=== PATIENT | female | born 1945 | race Caucasian/White ===

== ENCOUNTER 2020-05-17 09:02 | Day surgery (SDC) | payer MEDICARE ==
[~2020-05-17] VITALS: Ht 167.6 cm; Wt 86.6 kg
[~2020-05-17 09:02] MED LIST: GLIP5 PO; LEVOTHYROXINE88 MC1 PO; METF500C PO; Prednisone10 MG PO
[2020-05-17] MEDS ORDERED: ONDA8 PO (09:55)
[2020-05-17] MEDS ORDERED: MAGNESIUM OXID500 MG PO (09:57)
--- NOTE | 2020-05-17 10:25 | NUR ---
Ambulatory in Day Surgery History, Chart, Medications and Allergies reviewed before start of procedure.Lungs clear T/O to Auscultation. Patient confirms NPO status and agrees with scheduled surgery. Pre-Op teaching done. Pt verbalizes understanding.
--- NOTE | 2020-05-17 12:25 | NUR ---
05/17/20 1225 Rosie Ramírez PT NOTED TO BE RED IN COLOR ALL OVER BODY PRIOR TO ENTERING OR 2. PT STATED SHE HAD SLOUCORTEF 100 MG AT 1104 THIS AM AND IT IS RELATED TO THAT. AWARE.
--- NOTE | 2020-05-17 13:40 | NUR ---
Dressing to procedure site clean, dry, intact with no visible drainage, swelling, erythema or bruising noted. PT ALERT AND ORIENTED. TOLERATING PO FLUIDS
--- NOTE | 2020-05-17 13:55 | NUR ---
Discharge instructions reviewed with patient. Patient verbalizes understanding. Copy given to patient to take home. Patient States Post-Procedure ride home has been arranged. Dressing to procedure site clean, dry, intact with no visible drainage, swelling, erythema or bruising noted. Provided pt with ice pack.
--- NOTE | 2020-05-17 14:14 | NUR ---
Discharged via wheelchair to private car for ride home.
== END 2020-05-17 14:15 | disposition home or self-care (01) ==
LOC: ORSCMMR 09:02 → ORD 10:30 → ORSCMMR 10:30
PROVIDERS: Surgery
PROC: 05HM33Z Insertion of Infusion Device into Right Internal Jugular Vein, Percutaneous Approach (ICD-10-PCS; principal; 2020-05-17 10:30)
PROC: B543ZZA Ultrasonography of Right Jugular Veins, Guidance (ICD-10-PCS; principal; 2020-05-17 10:30)
DX: C25.8 Malignant neoplasm of overlapping sites of pancreas (principal); E03.9 Hypothyroidism, unspecified; E11.9 Type 2 diabetes mellitus without complications; Z79.84 Long term (current) use of oral hypoglycemic drugs; G40.909 Epilepsy, unspecified, not intractable, without status epilepticus; Z79.899 Other long term (current) drug therapy
CPT/HCPCS: 77001; 82947; C1788; J0690; J1642; J1720; J2405; J3010; J7120

== ENCOUNTER 2020-07-13 11:23 | Inpatient (IN) | payer MEDICARE, OTHER ==
[~2020-07-13] VITALS: Ht 167.6 cm; Wt 77.1 kg
[~2020-07-13 11:23] MED LIST changes: +MAGNESIUM OXID500 MG PO; +ONDA8 PO
[2020-07-13 13:16] LABS: Hematocrit 30.7 % (33.0-51.0); Hemoglobin 10.3 g/dL (11.5-16.0); Mean Corpuscular HGB 33.3 pg (26.0-34.0); Mean Corpuscular HGB Conc 33.6 g/dL (31.5-36.5); Mean Corpuscular Volume 99 fL (80-100); Mean Platelet Volume 9.9 fL (9.1-12.4); Platelet Count 199 K/mm3 (150-400); RDW Coefficient Variation 19.1 % (11.7-14.2); RDW Standard Deviation 67.8 fL (35.1-46.3); Red Blood Cell Count 3.09 M/mm3 (3.80-5.20); White Blood Cell Count 8.81 K/mm3 (4.00-11.30)
[2020-07-13 13:40] LABS: Albumin, Blood 2.8 g/dL (3.4-5.0); Albumin/Globulin Ratio 0.9 (0.8-1.8); Bilirubin, Total 0.5 mg/dL (0.1-1.0); Bun/Creatinine Ratio 10.5 (12.0-20.0); Calcium, Blood 8.2 mg/dL (8.5-10.1); Creatinine, Blood 1.14 mg/dL (0.40-1.00); Potassium, Blood 3.6 mmol/L (3.5-5.5); Total Protein, Blood 5.8 g/dL (6.4-8.2)
[2020-07-13 13:48] LABS: BAND PERCENT MAN 21 % (0-8); BASOPHILS PERCENT MAN 0 % (0-2); EOSINOPHILS ABSOLUTE MAN 0.08 K/mm3 (0.00-0.68); EOSINOPHILS PERCENT MAN 1 % (0-6); LYMPHOCYTES ABSOLUTE MAN 1.76 K/mm3 (0.84-5.20); LYMPHOCYTES PERCENT MAN 20 % (21-46); METAMYELOCYTE ABSOLUTE MAN 0.08 K/mm3 (0.00-0.00); METAMYELOCYTE PERCENT MAN 1 % (0-0); MONOCYTES ABSOLUTE MAN 0.44 K/mm3 (0.16-1.47); MONOCYTES PERCENT MAN 5 % (4-13); NEUTROPHILS ABSOLUTE MAN 6.43 K/mm3 (1.96-9.15); SEG NEUTROPHILS PERCENT MAN 52 % (41-73); TOTAL CELLS COUNTED 100
[2020-07-13] MEDS ORDERED: INSULIN AS100 UNIT/8 SC (15:41)
[2020-07-13] MEDS ORDERED: TRESIBA FL100 UNIT/2 SC (17:23)
[2020-07-13] MEDS ORDERED: [UNRECOGNIZED DRUG - OTHER] (17:24)
[2020-07-13] MEDS ORDERED: DIPHENHYDRAMINE PO (17:26)
[2020-07-13] MEDS ORDERED: ACETAMINOPHEN PO (17:26)
[2020-07-13] MEDS ORDERED: IMODIUM A-D2 M1 PO (21:41)
[2020-07-13] MEDS ORDERED: EMU OIL TOP (21:41)
[2020-07-13 23:56] LABS: Source, Urine Clean Catch
[2020-07-14 00:05] LABS: Appearance, Urine Clear (Clear); Bilirubin, Urine Neg (Neg); Blood, Urine 4+ (Neg); Color, Urine Amber (P-Yellow); Glucose Qualitative, Urine 1+ (Neg); Ketones, Urine Neg (Neg); Leukocyte Esterase, Urine 2+ (Neg); Nitrite, Urine Neg (Neg); Protein, Urine 2+ (Neg); Specific Gravity, Urine 1.015 (1.003-1.022); Urobilinogen, Urine NORM (Normal)
[2020-07-14 00:10] LABS: Bacteria Many /hpf; Hyaline Casts 0-2 /lpf (0-2); Mucus Light (0-Heavy); Squamous Epithelial Cells Few /hpf (Few); White Blood Cells, Urine 25-50 /hpf (0-5)
[2020-07-14 04:59] LABS: Hematocrit 28.1 % (33.0-51.0); Hemoglobin 9.2 g/dL (11.5-16.0); Mean Corpuscular HGB 32.2 pg (26.0-34.0); Mean Corpuscular HGB Conc 32.7 g/dL (31.5-36.5); Mean Corpuscular Volume 98 fL (80-100); Mean Platelet Volume 9.8 fL (9.1-12.4); Platelet Count 187 K/mm3 (150-400); RDW Coefficient Variation 18.6 % (11.7-14.2); RDW Standard Deviation 66.3 fL (35.1-46.3); Red Blood Cell Count 2.86 M/mm3 (3.80-5.20); White Blood Cell Count 8.54 K/mm3 (4.00-11.30)
[2020-07-14 05:19] LABS: Anion Gap 3 mmol/L (6-16); Blood Urea Nitrogen 14 mg/dL (8-24); Bun/Creatinine Ratio 15.1 (12.0-20.0); CO2, Blood 29 mmol/L (21-32); Calcium, Blood 7.9 mg/dL (8.5-10.1); Chloride, Blood 105 mmol/L (98-108); Creatinine, Blood 0.93 mg/dL (0.40-1.00); Glomerular Filtration Rate >60 (60-); Glucose, Blood 58 mg/dL (70-99); Magnesium, Blood 1.4 mg/dL (1.6-2.4); Phosphorus, Blood 2.9 mg/dL (2.5-4.9); Potassium, Blood 3.5 mmol/L (3.5-5.5); Sodium, Blood 137 mmol/L (136-145)
[2020-07-14 05:40] LABS: BAND PERCENT MAN 6 % (0-8); BASOPHILS PERCENT MAN 0 % (0-2); EOSINOPHILS PERCENT MAN 0 % (0-6); LYMPHOCYTES ABSOLUTE MAN 1.45 K/mm3 (0.84-5.20); LYMPHOCYTES PERCENT MAN 17 % (21-46); MONOCYTES ABSOLUTE MAN 0.93 K/mm3 (0.16-1.47); MONOCYTES PERCENT MAN 11 % (4-13); MYELOCYTE ABSOLUTE MAN 0.17 K/mm3 (0.00-0.00); MYELOCYTE PERCENT MAN 2 % (0-0); NEUTROPHILS ABSOLUTE MAN 5.97 K/mm3 (1.96-9.15); SEG NEUTROPHILS PERCENT MAN 64 % (41-73); TOTAL CELLS COUNTED 100
--- NOTE | 2020-07-14 05:53 | NUR ---
SHIFT SUMMARY NEW ED ADMIT THIS EVENING. PT IS VERY PARTICULAR ABOUT EVERYTHING. HAS MANY ALLERGIES TO FOODS. PT ALSO REPORTS THAT SHE CANNOT EAT OR DRINK ANYTHING THAT IS COLD. CBG 62 AT HS AND 58 WITH LABS THIS AM. THE ONLY THING THAT PT WAS ABLE TO EAT OUT OF THE PANTRY TO BRING UP BLOOD SUGAR WAS FRUIT CUPS. WARMED UP FRUIT CUPS AND PT TOLERATED WELL. 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 MAKING PT'S SKIN RED AND ITCHY. EUCERIN CREAM ORDERED BUT PT WOULD NOT USE IT SHE WAS CONCERNED THERE MAY BE SOMETHING THAT SHE IS ALLERGIC TO IN IT. METAPORT TO R CHEST WALL. NOT ACCESSED. PT DID NOT SLEEP WELL THIS EVENING. GAS PAINS REPORTED, BM THIS AM WITH IMPROVEMENT. VERY LOW GRADE TEMP AT 99.7 AND 99.5. TYLENOL GIVEN THIS AM. VITAL SIGNS STABLE. WILL CONTINUE TO MONITOR.
--- NOTE | 2020-07-14 10:07 | NUR ---
VERBAL ORDERS FROM DR. SCHMITT TYLENOL PM 2 TABS AT NIGHT PER HOME DOSE, OK TO HAVE SKIN LOTION FROM HOME, DC LEVAQUIN AND REPLACE WITH VANCO BY HAVING PHARMACY CONSULTED AND MANAGE BACTEREMIA. ORDERS UPDATED.
--- NOTE | 2020-07-14 15:43 | NUR ---
Shift Summary A/Ox4, pleasant and cooperative. and daughter visited today. Calls appropriately for needs. SBA to bathroom. Appetite is poor d/t patient's dietary restrictions (patient reports allergy and chemo drug interaction with the following: lactose, diary, eggs, cold drinks, gluten). Patient also reports dislike for soy and almond milk. Blood sugars have been low, lantus held per parameter. Patient has been snacking q2h with rice cakes and gluten free bread/butter. Home lotion brought in by (Ragini) for itchiness and dry skin. Denies pain, nausea, vomiting. Also reports diminished taste d/t chemotherapy. Tele: 81. WCTM.
[2020-07-15 05:12] LABS: Hematocrit 29.5 % (33.0-51.0); Hemoglobin 9.9 g/dL (11.5-16.0); Mean Corpuscular HGB 32.7 pg (26.0-34.0); Mean Corpuscular HGB Conc 33.6 g/dL (31.5-36.5); Mean Corpuscular Volume 97 fL (80-100); Mean Platelet Volume 10.2 fL (9.1-12.4); Platelet Count 225 K/mm3 (150-400); RDW Coefficient Variation 18.6 % (11.7-14.2); RDW Standard Deviation 65.5 fL (35.1-46.3); Red Blood Cell Count 3.03 M/mm3 (3.80-5.20); White Blood Cell Count 12.64 K/mm3 (4.00-11.30)
[2020-07-15 05:38] LABS: Albumin, Blood 2.2 g/dL (3.4-5.0); Anion Gap 8 mmol/L (6-16); Blood Urea Nitrogen 9 mg/dL (8-24); Bun/Creatinine Ratio 9.3 (12.0-20.0); CO2, Blood 25 mmol/L (21-32); Calcium, Blood 8.3 mg/dL (8.5-10.1); Chloride, Blood 102 mmol/L (98-108); Creatinine, Blood 0.97 mg/dL (0.40-1.00); Glomerular Filtration Rate 60 (60-); Glucose, Blood 93 mg/dL (70-99); Magnesium, Blood 1.8 mg/dL (1.6-2.4); Potassium, Blood 3.5 mmol/L (3.5-5.5); Sodium, Blood 135 mmol/L (136-145)
--- NOTE | 2020-07-15 05:53 | NUR ---
SHIFT SUMMARY PT HAD A MUCH BETTER EVENING. SLEPT WELL MOST OF THE NIGHT. PT REFUSED PROBIOTIC AT HS CONCERNED THAT IT MAY BE THE CAUSE OF PT'S GAS AND PT DENIED HAVING ANY GAS THROUGHOUT THE NIGHT. SKIN CONTINUES TO BE RED, FLAKY, AND DRY WHICH IS PT'S BASELINE. PT APPLIES LOTION AND "EMU OIL" INDEPENDENTLY NEEDED. ITCHING IMPROVED WITH PT'S HOME REGIMEN. TELEMETRY SR 83. PT 99.4 AT HS VITALS CHECK, 98.3 THIS AM WITHOUT MEDICATION. HIGHER TEMPERATURE MAY BE RELATED TO FREQUENTLY REQUESTED BLANKETS FROM THE WARMER. METAPORT TO R CHEST WALL REMAINS UNACCESSED. PT RESTING IN BED AT THIS TIME. VITAL SIGNS STABLE. WILL CONTINUE TO MONITOR.
--- NOTE | 2020-07-15 11:30 | NUR ---
Echocardiogram completed.
--- NOTE | 2020-07-15 16:29 | NUR ---
SHIFT SUMMARY PT AxOx4. PLEASANT AND COOPERATIVE WITH CARE. NOTABLE RED, SCALY SKIN T/O. PER PATIENT, THIS IS NORMAL FOR HER D/T SEZARY DISEASE. PT HAD ECHOCARDIOGRAM TODAY. IN FOR VISIT, UPDATED ON PLAN OF CARE. PER DR SCHMITT, PT WILL STAY LONGER TO GET IV ABX TO TREAT POSITIVE BLOOD CULTURES. VITALS REVIEWED. TELE RUNNING SR @70. PT SBA TO BR. PT REPORTS FEELING STRONGER TODAY. DENIES PAIN. CURRENTLY RESTING IN BED WITH CALL LIGHT IN REACH. DENIES ANY NEEDS AT THIS TIME.
--- NOTE | 2020-07-16 04:29 | NUR ---
SHIFT SUMMARY PT CONTINUES TO FEEL IMPROVED. SLEPT WELL AGAIN THIS EVENING. NO COMPLAINTS OF PAIN OR DISCOMFORT. USED SELF LOTIONS AND OILS FOR RED FLAKY SKIN. SKIN IS BASELINE FOR PT WITH SEZARY SYNDROME. SECOND SET OF BLOOD CULTURES CAME BACK GRAM POSITIVE COCCI IN CLUSTERS. METAPORT R CHEST WALL. NOT ACCESSED. BLOOD SUGARS STABLE. NO ACUTE EVENTS THIS EVENING. VITAL SIGNS STABLE. AFEBRILE. WILL CONTINUE TO MONITOR.
[2020-07-16 05:45] LABS: Hematocrit 26.8 % (33.0-51.0); Mean Corpuscular HGB 32.4 pg (26.0-34.0); Mean Corpuscular HGB Conc 33.6 g/dL (31.5-36.5); Mean Corpuscular Volume 96 fL (80-100); Mean Platelet Volume 10.1 fL (9.1-12.4); NRBC ABSOLUTE 0.02 K/mm3 (0.00-0.02); NRBC Auto 0.1 /100 WBC (0.0-0.2); Platelet Count 239 K/mm3 (150-400); RDW Coefficient Variation 18.5 % (11.7-14.2); RDW Standard Deviation 64.5 fL (35.1-46.3); Red Blood Cell Count 2.78 M/mm3 (3.80-5.20); White Blood Cell Count 16.59 K/mm3 (4.00-11.30)
[2020-07-16 06:01] LABS: Anion Gap 7 mmol/L (6-16); Blood Urea Nitrogen 9 mg/dL (8-24); Bun/Creatinine Ratio 9.6 (12.0-20.0); CO2, Blood 26 mmol/L (21-32); Calcium, Blood 8.1 mg/dL (8.5-10.1); Chloride, Blood 104 mmol/L (98-108); Creatinine, Blood 0.94 mg/dL (0.40-1.00); Glomerular Filtration Rate >60 (60-); Glucose, Blood 117 mg/dL (70-99); Phosphorus, Blood 2.7 mg/dL (2.5-4.9); Potassium, Blood 3.2 mmol/L (3.5-5.5); Sodium, Blood 137 mmol/L (136-145)
[2020-07-16 10:59] LABS: Vancomycin, Trough 12.8 ug/mL (5.0-10.0)
--- NOTE | 2020-07-16 17:09 | NUR ---
SHIFT SUMMARY PT AxOx4. COOPERATIVE WITH CARE. PT HAD SHOWER TODAY. DENIES PAIN. DR BERRY, INFECTIOUS DISEASE DR CONSULTED TODAY. MEDIPORT ACCESS ORDERS GIVEN FOR BLOOD CULTURES AND IV ABX ADMINISTRATION. PT'S IN TODAY, AND UPDATED ON PLAN OF CARE. GISSEL GREENFIELD, GYMNASTICS INSTRUCTOR CONSULTED REGARDING DC PLANS. TENTATIVE PLAN IS FOR PT TO HAVE CARE HOME OUTPATIENT IV ABX. PLAN IS STILL DEVELOPING PT LIVES ON THE [facility]. NEUTROPENIC PRECAUTIONS DC'D TODAY. PT/OT WORKING WITH PATIENT. INDEPENDENT IN THE ROOM. VITALS REVIEWED. PT CURRENTLY RESTING IN BED WITH CALL LIGHT IN REACH.
--- NOTE | 2020-07-16 20:00 | NUR ---
CONSULT: SPOKE WITH DOCTOR BERRY TO CLARIFY TODAYS ORDERS TO ACCESS PORT. AREA IS VERY SWOLLEN AND CONCRETE INSPECTOR IS UNABLE TO IDENTIFY LAND ADALID TO ACCESS PORT. TROY BERRY IS OK WITH A NURSE FROM ICU ACCESSING PORT TO TRY TO OBTAIN ACCESS AND DRAW CULTURES AND ADMIN ABX. IF ACCESS IS NOT OBTAINED HOLD CEFZOLIN AND ADMIN ROCHEPHINE VIA PERIFFERRAL IV SITE.
--- NOTE | 2020-07-17 06:41 | NUR ---
SHIFT SUMMARY: MEDIPORT WAS NOT ACCESSED DUE TO SWELLING. VSS, NO REPORTS OF PAIN OR DISCOMFORT. LAB HAS CANCELED BLOOD CULTURES FROM PORT DUE TO NO ACCESS. SYNTHROID HAS BEEN DC'D, PATIENT WAS ASKING FOR MEDICATION. DC ORDER WAS PLACE BY DR BERRY. PATIENT IS CONCERNED ABOUT NOT HAVING THIS MEDICATION. SWELLING TO RCW PEDIPORT HAS NOT INCREADED THEOUGH THE SHIFT.
[2020-07-17 09:04] LABS: Hematocrit 31.3 % (33.0-51.0); Hemoglobin 10.3 g/dL (11.5-16.0); Mean Corpuscular HGB Conc 32.9 g/dL (31.5-36.5); Mean Corpuscular Volume 97 fL (80-100); Mean Platelet Volume 9.8 fL (9.1-12.4); NRBC ABSOLUTE 0.07 K/mm3 (0.00-0.02); NRBC Auto 0.3 /100 WBC (0.0-0.2); Platelet Count 301 K/mm3 (150-400); RDW Coefficient Variation 18.7 % (11.7-14.2); RDW Standard Deviation 65.7 fL (35.1-46.3); Red Blood Cell Count 3.22 M/mm3 (3.80-5.20); White Blood Cell Count 22.49 K/mm3 (4.00-11.30)
[2020-07-17 09:29] LABS: BAND PERCENT MAN 9 % (0-8); BASOPHILS PERCENT MAN 0 % (0-2); EOSINOPHILS PERCENT MAN 0 % (0-6); LYMPHOCYTES ABSOLUTE MAN 4.49 K/mm3 (0.84-5.20); LYMPHOCYTES PERCENT MAN 20 % (21-46); METAMYELOCYTE ABSOLUTE MAN 0.22 K/mm3 (0.00-0.00); METAMYELOCYTE PERCENT MAN 1 % (0-0); MONOCYTES ABSOLUTE MAN 0.44 K/mm3 (0.16-1.47); MONOCYTES PERCENT MAN 2 % (4-13); MYELOCYTE ABSOLUTE MAN 0.67 K/mm3 (0.00-0.00); MYELOCYTE PERCENT MAN 3 % (0-0); NEUTROPHILS ABSOLUTE MAN 16.64 K/mm3 (1.96-9.15); SEG NEUTROPHILS PERCENT MAN 65 % (41-73); TOTAL CELLS COUNTED 100
[2020-07-17 09:38] LABS: Anion Gap 5 mmol/L (6-16); Blood Urea Nitrogen 10 mg/dL (8-24); Bun/Creatinine Ratio 10.6 (12.0-20.0); CO2, Blood 29 mmol/L (21-32); Calcium, Blood 8.7 mg/dL (8.5-10.1); Chloride, Blood 103 mmol/L (98-108); Creatinine, Blood 0.94 mg/dL (0.40-1.00); Glomerular Filtration Rate >60 (60-); Glucose, Blood 82 mg/dL (70-99); Potassium, Blood 2.9 mmol/L (3.5-5.5); Sodium, Blood 137 mmol/L (136-145)
--- NOTE | 2020-07-17 13:08 | NUR ---
ULRASOUND RESULTS CALLED TO DR. PAWAN VILLALTA'S OFFICE WAS CALLED & ULTRASOUND RESULTS WERE RELAYED TO REYES PARHAM. RESULTS WERE A 4.3 CM COMPLEX FLUID COLLECTION ON R UPPER CHEST WALL. GUILHERME STATED SHE WILL RELAY MESSAGE TO DR. VILLALTA.
--- NOTE | 2020-07-17 16:33 | NUR ---
SHIFT SUMMARY CONSLUTED FOR PT THIS AM. AFTER INITIAL EVAL, ULTRASOUND WAS ORDERED FOR THE R CHEST WALL. WELLNESS RN REPORTED A 4.3CM COMPLEX FLUID COLLECTION. THIS WAS RELAYED TO DR. VILLALTA AND THE MEDIPORT WAS REMOVED AT BEDSIDE BY DR. VILLALTA AND DR. SANCHEZ. CULTURES SENT TO LAB. DRESSING CLEAN & INTACT AT THIS TIME. PT REMAINS IND IN ROOM. FOAM PREVENTATIVE MEPILEX PLACED TO R HEEL. PT STATES IT HAS BEEN TENDER SINCE BEFORE HER ADMISSION. PT MEDICATED WITH TYLENOL ONCE THIS SHIFT AFTER THE REMOVAL OF HER MEDIPORT. NEW IV PLACED BY PHLEBOTOMIST. PT RESTING IN BED. FAMILY AT BEDSIDE. CALL LIGHT IN REACH. VS REVIEWED.
[2020-07-18 06:07] LABS: Hematocrit 27.6 % (33.0-51.0); Hemoglobin 9.2 g/dL (11.5-16.0); Mean Corpuscular HGB 32.5 pg (26.0-34.0); Mean Corpuscular HGB Conc 33.3 g/dL (31.5-36.5); Mean Corpuscular Volume 98 fL (80-100); Mean Platelet Volume 10.5 fL (9.1-12.4); NRBC ABSOLUTE 0.05 K/mm3 (0.00-0.02); NRBC Auto 0.2 /100 WBC (0.0-0.2); Platelet Count 295 K/mm3 (150-400); RDW Coefficient Variation 19.1 % (11.7-14.2); RDW Standard Deviation 66.9 fL (35.1-46.3); Red Blood Cell Count 2.83 M/mm3 (3.80-5.20); White Blood Cell Count 20.83 K/mm3 (4.00-11.30)
[2020-07-18 06:39] LABS: Anion Gap 3 mmol/L (6-16); Blood Urea Nitrogen 12 mg/dL (8-24); Bun/Creatinine Ratio 13.5 (12.0-20.0); CO2, Blood 28 mmol/L (21-32); Calcium, Blood 8.2 mg/dL (8.5-10.1); Chloride, Blood 106 mmol/L (98-108); Creatinine, Blood 0.89 mg/dL (0.40-1.00); Glomerular Filtration Rate >60 (60-); Glucose, Blood 111 mg/dL (70-99); Magnesium, Blood 1.6 mg/dL (1.6-2.4); Potassium, Blood 4.1 mmol/L (3.5-5.5); Sodium, Blood 137 mmol/L (136-145)
[2020-07-18 06:48] LABS: BAND PERCENT MAN 14 % (0-8); BASOPHILS PERCENT MAN 1 % (0-2); EOSINOPHILS PERCENT MAN 1 % (0-6); LYMPHOCYTES ABSOLUTE MAN 2.91 K/mm3 (0.84-5.20); LYMPHOCYTES PERCENT MAN 14 % (21-46); METAMYELOCYTE PERCENT MAN 1 % (0-0); MONOCYTES ABSOLUTE MAN 2.49 K/mm3 (0.16-1.47); MONOCYTES PERCENT MAN 12 % (4-13); MYELOCYTE ABSOLUTE MAN 0.41 K/mm3 (0.00-0.00); MYELOCYTE PERCENT MAN 2 % (0-0); NEUTROPHILS ABSOLUTE MAN 14.37 K/mm3 (1.96-9.15); SEG NEUTROPHILS PERCENT MAN 55 % (41-73); TOTAL CELLS COUNTED 100
--- NOTE | 2020-07-18 07:53 | NUR ---
SHIFT SUMMARY: PATIENT IS REPORT MINIMAL PAIN AT OLD MEDIPORT SITE. DRSG REMAINS D&I, SMALL AMT. OF SHADOWING, VSS. PRUNE JUICE WAS GIVEN FOR CONSTIPATION RESULTING IN AND NORMAL FORMED BOWEL MOVEMENT. PATIENT IS INDEPENDANT IN THE ROOM.
--- NOTE | 2020-07-18 12:00 | NUR ---
Spiritual care visit conducted. Patient is sitting up in bed and alert. Patient tells me about her complicated medical issues and the plan going forward. Patient then talks at length about how her emotional/spiritual struggles as she has been overwhelmed and by the length and severity of the physical symptoms that she deals with day in and day out. I normalize patient's experience, reinforce helpful attitudes and practices and provide therapeutic listening and prayer. Patient responds well and shows signs of restored cabrera. I will continue to assist patient process who she is and how her cabrera can sustain her in the midst of the medical struggles. Spiritual care will continue to remain available to patient and family.
--- NOTE | 2020-07-18 16:05 | NUR ---
SHIFT SUMMARY NO ACUTE CHANGES T/O SHIFT, DENIES ANY DISTRESS, A&Ox4, INDEPENDENT IN ROOM, CALM AND COOPERATIVE. DRESSING TO RCW WAS CHANGED PER ORDERS THIS SHIFT. VENOUS UTRASOUND COMPLETED ON RLE DUE TO INCREASED SWELLING, NO DVT NOTED. IV ABX CONTINUE. GOOD ORAL INTAKE. PT IS CURRENTLY DANGLING AT THE BEDSIDE WITH CALL LIGHT WITHIN REACH. CALLS APPROPRIATELY.
--- NOTE | 2020-07-19 04:13 | NUR ---
CIRCUS HAND SUMMARY HAS BEEN RESTING QUIETLY WITH FEW INTERRUPTIONS THIS SHIFT AFTER HAVING RECEIVED TYLENOL PM AT HS. NO NOTED ACUTE DISTRESS. CALL LIGHT IN REACH
[2020-07-19 05:02] LABS: Hematocrit 26.1 % (33.0-51.0); Hemoglobin 8.5 g/dL (11.5-16.0); Mean Corpuscular HGB 31.8 pg (26.0-34.0); Mean Corpuscular HGB Conc 32.6 g/dL (31.5-36.5); Mean Corpuscular Volume 98 fL (80-100); Mean Platelet Volume 10.4 fL (9.1-12.4); NRBC ABSOLUTE 0.06 K/mm3 (0.00-0.02); NRBC Auto 0.3 /100 WBC (0.0-0.2); Platelet Count 319 K/mm3 (150-400); RDW Coefficient Variation 19.3 % (11.7-14.2); RDW Standard Deviation 67.7 fL (35.1-46.3); Red Blood Cell Count 2.67 M/mm3 (3.80-5.20); White Blood Cell Count 22.13 K/mm3 (4.00-11.30)
[2020-07-19 05:29] LABS: Bun/Creatinine Ratio 15.4 (12.0-20.0); Calcium, Blood 8.2 mg/dL (8.5-10.1); Creatinine, Blood 0.98 mg/dL (0.40-1.00); Potassium, Blood 3.8 mmol/L (3.5-5.5)
--- NOTE | 2020-07-19 14:26 | NUR ---
Spiritual care visit conducted. Patient is lying in bed and alert. Patient explains what she gained from the spiritual care visit yesterday. We talk more in depth about the mental battles she goes though while fighting these types of cancers. She shares personal information. I provide therapeutic listening, ideas on how to stay connected to the people that the disease has distanced her from, inspiring quotes and scriptures and prayer. Patient responds well and shows signs of increased hope on managing fears, worries and doubts. I will continue to assist patient in the spiritual/emotional aspects of living with cancer.
--- NOTE | 2020-07-19 17:56 | NUR ---
SHIFT SUMMARY PATIENT ALERT, ORIENTED, INDEPENDENT IN THE ROOM THIS SHIFT. PATIENT REMAINS ON IV ANTIBIOTICS. NO ACUTE CHANGES THIS SHIFT. PATIENT DENIES PAIN THROUGHOUT THIS SHIFT. PATIENT'S SPOUSE IN THE ROOM VISITING THIS AFTERNOON. PATIENT CURRENTLY SITTING UP IN BED EATING DINNER.
--- NOTE | 2020-07-19 21:17 | NUR ---
IVF INFUSING - FLUSH IN, CAPPED, COBANNED FOR SAFETY
--- NOTE | 2020-07-20 04:51 | NUR ---
WINTERIZER SUMMARY HAS BEEN RESTING QUIETLY WITH FEW INTERRUPTIONS SINCE HS. DRESSING OF RIGHT CHEST CDI. NO C/O PAIN OR ACUTE DISTRESS. VERBALIZED SOME ANNOYANCE OF WAKING UP WITH STAFF MEASURING/EMPTYING URINE FOR I AND O. CALL LIGHT IN REACH
--- NOTE | 2020-07-20 12:04 | NUR ---
Spiritual care visit conducted. Patient is sitting up in bed and resting. Patient easily awakens as I open the door. Patient discussing the agonizing mental/emotional/spiritual stark that she endures day after day. We explore sources of hope and meaning. We also talk about what is at stake for her and what her heart's desire is in the midst of intense pressure and pain. I provide therapeutic listening, recitation of scripture, emotional support and prayer. Patient responds well and shows signs of being comforted and encouraged. Spiritual care will remain available .
[2020-07-20] MEDS ORDERED: CEFTRIAXONE2 G7 IV (15:05)
[2020-07-20] MEDS ORDERED: VISBIOME 112.51 EACH PO (15:05)
--- NOTE | 2020-07-20 18:26 | NUR ---
SHIFT SUMMARY NO ACUTE CHANGES TO REPORT THIS SHIFT. PT A&OX4 AND INDEPENDENT IN THE ROOM. PT HAD POWERGLIDE PLACED THIS SHIFT IN HOPES PT WILL BE DC TOMORROW PENDING CULTURE RESULTS. PT HAD A SHOWER AND DRESSING CHANGES ON [facility] SITE AND RIGHT HEAL COMPLETED THIS SHIFT. PT CURENLTY FINISHING DINNER AND WILL CONTINUE TO MONITOR UNTIL SHIFT CHANGE.
--- NOTE | 2020-07-21 05:06 | NUR ---
SUMMARY NO NEW ISSUES NOTED. PT SLEPT WELL T/O SHIFT. PT EAGER TO GO HOME. CALL LIGHT IN REACH.
[2020-07-21 05:40] LABS: Hematocrit 26.7 % (33.0-51.0); Hemoglobin 8.9 g/dL (11.5-16.0); Mean Corpuscular HGB 32.5 pg (26.0-34.0); Mean Corpuscular HGB Conc 33.3 g/dL (31.5-36.5); Mean Corpuscular Volume 97 fL (80-100); Mean Platelet Volume 9.8 fL (9.1-12.4); NRBC ABSOLUTE 0.06 K/mm3 (0.00-0.02); NRBC Auto 0.3 /100 WBC (0.0-0.2); Platelet Count 400 K/mm3 (150-400); RDW Coefficient Variation 19.2 % (11.7-14.2); Red Blood Cell Count 2.74 M/mm3 (3.80-5.20)
[2020-07-21 05:57] LABS: Anion Gap 4 mmol/L (6-16); Blood Urea Nitrogen 12 mg/dL (8-24); Bun/Creatinine Ratio 13.1 (12.0-20.0); CO2, Blood 31 mmol/L (21-32); Calcium, Blood 8.3 mg/dL (8.5-10.1); Chloride, Blood 103 mmol/L (98-108); Creatinine, Blood 0.92 mg/dL (0.40-1.00); Glomerular Filtration Rate >60 (60-); Glucose, Blood 101 mg/dL (70-99); Potassium, Blood 3.9 mmol/L (3.5-5.5); Sodium, Blood 138 mmol/L (136-145)
[2020-07-21 05:58] LABS: BAND PERCENT MAN 18 % (0-8); BASOPHILS PERCENT MAN 0 % (0-2); EOSINOPHILS PERCENT MAN 1 % (0-6); LYMPHOCYTES ABSOLUTE MAN 2.69 K/mm3 (0.84-5.20); LYMPHOCYTES PERCENT MAN 13 % (21-46); METAMYELOCYTE ABSOLUTE MAN 0.41 K/mm3 (0.00-0.00); METAMYELOCYTE PERCENT MAN 2 % (0-0); MONOCYTES ABSOLUTE MAN 0.82 K/mm3 (0.16-1.47); MONOCYTES PERCENT MAN 4 % (4-13); MYELOCYTE ABSOLUTE MAN 0.82 K/mm3 (0.00-0.00); MYELOCYTE PERCENT MAN 4 % (0-0); NEUTROPHILS ABSOLUTE MAN 15.73 K/mm3 (1.96-9.15); SEG NEUTROPHILS PERCENT MAN 58 % (41-73); TOTAL CELLS COUNTED 100
[2020-07-21] MEDS ORDERED: CEFTRIAXONE2 G1 IV (15:08)
[2020-07-21] MEDS ORDERED: VISBIOME 112.51 EACH PO (15:09)
--- NOTE | 2020-07-21 17:02 | NUR ---
DISCHARGE SUMMARY PT DISCHARGE THIS SHIFT AT 1646 TO HOME. PT's PRESENT DURING DISCHARGE PROCESS. PT AND FAMILY VERBALIZED UNDERSTANDING OF DISCHARGE INSTRUCTIONS AND TEACHINGS. POWERGLIDE IV IN PLACE TO LUE, DRESSING C/D/I TO AFFECTED AREA. VERIFIED WITH DR. FUCHS, POWERGLIDE TO STAY IN PLACE WHEN PT IS D/C FOR SCHEDULED OUTPATIENT IV TX. NO ISSUES OR CONCERNS NOTED FROM PT OR FAMILY, NO C/O PAIN OR ANY DISCOMFORT PRIOR TO DISCHARGE. DISCHARGE PACKET GIVEN TO PT.
== END 2020-07-21 16:49 | disposition home or self-care (01) | DRG 314 ==
LOC: ER 11:23 → MEDS 17:29
PROVIDERS: Internal Medicine; Physician Assistant; ADMIT Internal Medicine
PROC: 0JPT0WZ Removal of Totally Implantable Vascular Access Device from Trunk Subcutaneous Tissue and Fascia, Open Approach (ICD-10-PCS; principal; 2020-07-17)
DX: T80.211A Bloodstream infection due to central venous catheter, initial encounter (principal); A41.01 Sepsis due to Methicillin susceptible Staphylococcus aureus; L03.114 Cellulitis of left upper limb; C25.0 Malignant neoplasm of head of pancreas; C84.10 Sezary disease, unspecified site; C84.A0 Cutaneous T-cell lymphoma, unspecified, unspecified site; E87.1 Hypo-osmolality and hyponatremia; L02.213 Cutaneous abscess of chest wall; Y83.8 Other surgical procedures as the cause of abnormal reaction of the patient, or of later complication, without mention of misadventure at the time of the procedure; E09.9 Drug or chemical induced diabetes mellitus without complications; E03.9 Hypothyroidism, unspecified; I10 Essential (primary) hypertension; E87.6 Hypokalemia; E83.42 Hypomagnesemia; T38.0X5A Adverse effect of glucocorticoids and synthetic analogues, initial encounter; D63.0 Anemia in neoplastic disease; E86.0 Dehydration; Z88.1 Allergy status to other antibiotic agents; Z91.012 Allergy to eggs; Z91.040 Latex allergy status; Z91.011 Allergy to milk products; Z88.2 Allergy status to sulfonamides; Z88.8 Allergy status to other drugs, medicaments and biological substances; Z91.018 Allergy to other foods; Z92.21 Personal history of antineoplastic chemotherapy; Z79.4 Long term (current) use of insulin; Z79.899 Other long term (current) drug therapy; Z79.52 Long term (current) use of systemic steroids; Z90.710 Acquired absence of both cervix and uterus; Z98.890 Other specified postprocedural states
CPT/HCPCS: 36415; 71046; 76604; 80048; 80053; 80069; 80202; 81001; 82947; 83605; 83735; 84100; 84443; 85025; 85027; 85651; 86141; 86301; 87040; 87070; 87075; 87077; 87086; 87147; 87186; 87205; 93306; 93356; 93971; 96361; 96365; 97110; 97116; 97162; 97165; 97530; 99284-25; A9270; C1751; J0692; J0696; J1650; J1815; J1956; J3370; J3475; J7030; J7050; J7512